=== PATIENT | female | born 1995 | race Caucasian/White ===

== ENCOUNTER → 2016-10-26 | Outpatient (CLI) | payer OTHER ==
[~2016-10-26] MED LIST: BIRTH CONTROL; NORCO 325 MG-51 TAB PO
== END ==
LOC: COL.RAD 11:40
DX: R10.11 Right upper quadrant pain (principal)

== ENCOUNTER 2016-10-29 19:42 | Emergency (ER) | payer OTHER ==
[~2016-10-29] VITALS: Ht 160 cm; Wt 75.0 kg
[2016-10-29 19:45] VITALS: BP 150/92; TEMP 98.8
[2016-10-29] MEDS ORDERED: BIRTH CONTROL (20:33)
[2016-10-29 20:42] LABS: PH 7 (5-8); SQUAMOUS EPITHELIAL 0-2 /hpf; URINE APPEARANCE Clear; URINE BACTERIA Rare /hpf; URINE BILIRUBIN Negative (NEGATIVE); URINE BLOOD Negative (NEGATIVE); URINE COLOR Straw; URINE GLUCOSE Negative (NEGATIVE); URINE KETONE Negative (NEGATIVE); URINE RBC 0-2 /hpf; URINE UROBILINOGEN Negative (NEGATIVE); URINE WBC 0-2 /hpf
[2016-10-29 20:44] LABS: ALBUMIN 4.3 gm/dL (3.5-5.0); BILIRUBIN,TOTAL 0.5 mg/dL (0.0-1.0); CALCIUM 9.2 mg/dL (8.4-10.2); CREATININE, serum 0.65 mg/dL (0.52-1.25); POTASSIUM 3.7 mmol/L (3.4-5.0); TOTAL PROTEIN 7.1 gm/dL (6.4-8.2)
[2016-10-29 20:47] LABS: BASO # 0.1 (0.0-0.2); BASO % 0.7 % (0.0-2.0); EOS # 0.1 (0.0-0.7); EOS % 1.1 % (0-4.0); GRAN # 4.9 (1.4-6.5); GRAN % 58.2 % (42.2-75.2); HEMATOCRIT 37.9 % (37.0-47.0); HEMOGLOBIN 12.5 g/dl (12.5-16.0); LYMPH # 2.7 (1.2-3.4); LYMPH % 32.3 % (20.0-51.0); MEAN CELL VOLUME 92 fl (80.0-100.0); MEAN CORPUSCULAR HEMOGLOBIN 30 pg (27.0-31.0); MEAN CORPUSCULAR HGB CONC 33 g/dl (33.0-37.0); MEAN PLATELET VOLUME 10.9 fl (7.4-10.4); MONO # 0.6 (0.1-0.6); MONO % 7.3 % (1.7-9.3); PLATELET COUNT 238 K/mm3 (130-400); RED BLOOD COUNT 4.14 M/mm3 (4.10-5.30); REDCELL DISTRIBUTION WIDTH-CV 12.8 % (11.5-14.5); WHITE BLOOD COUNT 8.4 K/mm3 (4.8-10.8)
[2016-10-29] MEDS ORDERED: NORCO 325 MG-51 TAB PO (21:48)
[2016-10-29 22:04] VITALS: PULSE 67
== END 2016-10-29 22:06 | disposition home or self-care (01) ==
LOC: COL.ER 19:42
PROVIDERS: Nurse Practitioner
DX: R10.11 Right upper quadrant pain (principal)
CPT/HCPCS: J2765; J3010; J7030

== ENCOUNTER → 2016-11-01 | Outpatient (CLI) | payer OTHER | LOC: COL.RAD 05:56 | DX: R10.11 Right upper quadrant pain (principal) | CPT/HCPCS: A9537; J2805 ==

== ENCOUNTER → 2017-02-15 | Outpatient (REF) | LOC: WSOH 11:20 | DX: Z00.00 Encounter for general adult medical examination without abnormal findings (principal) ==

== ENCOUNTER 2017-12-05 10:19 | Emergency (ER) | payer BC ==
[~2017-12-05] VITALS: Ht 160 cm; Wt 86.4 kg
[2017-12-05] MEDS ORDERED: CLARITIN 1010 MG/TAB PO (10:25)
[2017-12-05] MEDS ORDERED: ADVIL MIGRAINE200 MG PO (10:27)
[2017-12-05 10:58] LABS: BASO # 0.1 (0.0-0.2); BASO % 0.8 % (0.0-2.0); EOS # 0.1 (0.0-0.7); EOS % 1.4 % (0-4.0); GRAN % 65.3 % (42.2-75.2); HEMATOCRIT 39.7 % (37.0-47.0); HEMOGLOBIN 13.3 g/dl (12.5-16.0); LYMPH # 2.3 (1.2-3.4); LYMPH % 24.6 % (20.0-51.0); MEAN CELL VOLUME 89 fl (80.0-100.0); MEAN CORPUSCULAR HEMOGLOBIN 30 pg (27.0-31.0); MEAN CORPUSCULAR HGB CONC 34 g/dl (33.0-37.0); MEAN PLATELET VOLUME 10.8 fl (7.4-10.4); MONO # 0.7 (0.1-0.6); MONO % 7.5 % (1.7-9.3); PLATELET COUNT 269 K/mm3 (130-400); RED BLOOD COUNT 4.45 M/mm3 (4.10-5.30); REDCELL DISTRIBUTION WIDTH-CV 12.9 % (11.5-14.5)
[2017-12-05 11:08] LABS: ALBUMIN 4.1 gm/dL (3.5-5.0); BILIRUBIN,TOTAL 0.4 mg/dL (0.0-1.0); CALCIUM 9.7 mg/dL (8.4-10.2); CREATININE, serum 0.66 mg/dL (0.52-1.25); POTASSIUM 4.2 mmol/L (3.4-5.0); TOTAL PROTEIN 8.2 gm/dL (6.4-8.2)
[2017-12-05 11:44] LABS: COLLECTION METHOD CLEAN CATCH
[2017-12-05 11:51] LABS: AMORPHOUS CRYSTAL Present /uL; MUCOUS Present /lpf; PH 8 (5-8); SQUAMOUS EPITHELIAL 0-2 /hpf; URINE APPEARANCE Cloudy; URINE BACTERIA None Seen /hpf; URINE BILIRUBIN Negative (NEGATIVE); URINE BLOOD Negative (NEGATIVE); URINE COLOR Yellow; URINE GLUCOSE Negative (NEGATIVE); URINE KETONE Negative (NEGATIVE); URINE LEUKOCYTE ESTERASE Negative (NEGATIVE); URINE NITRATE Negative (NEGATIVE); URINE PROTEIN(semi-quant) Negative (NEGATIVE); URINE RBC 0-2 /hpf; URINE UROBILINOGEN Negative (NEGATIVE)
[2017-12-05 13:03] VITALS: BP 121/81; PULSE 71; TEMP 98
== END 2017-12-05 13:05 | disposition home or self-care (01) ==
LOC: COL.ER 10:19
PROVIDERS: Nurse Practitioner
DX: G43.909 Migraine, unspecified, not intractable, without status migrainosus (principal); M54.2 Cervicalgia; Z90.710 Acquired absence of both cervix and uterus; Z90.49 Acquired absence of other specified parts of digestive tract; Z87.42 Personal history of other diseases of the female genital tract
CPT/HCPCS: J1200; J1885; J2765; J7030

== ENCOUNTER 2020-12-29 20:24 | Emergency (ER) | payer BC ==
[~2020-12-29] VITALS: Ht 160 cm; Wt 100.0 kg
[~2020-12-29 20:24] MED LIST changes: +ADVIL MIGRAINE200 MG PO; +CLARITIN 1010 MG/TAB PO
[2020-12-29 21:22] LABS: BASO # 0.1 (0.0-0.2); BASO % 0.5 % (0.0-2.0); EOS # 0.3 (0.0-0.7); EOS % 2.1 % (0-4.0); GRAN # 9.6 (1.4-6.5); HEMATOCRIT 40.5 % (37.0-47.0); HEMOGLOBIN 13.3 g/dl (12.5-16.0); LYMPH # 3.9 (1.2-3.4); LYMPH % 26.7 % (20.0-51.0); MEAN CELL VOLUME 88 fl (80.0-100.0); MEAN CORPUSCULAR HEMOGLOBIN 29 pg (27.0-31.0); MEAN CORPUSCULAR HGB CONC 33 g/dl (33.0-37.0); MEAN PLATELET VOLUME 10.1 fl (7.4-10.4); MONO # 0.7 (0.1-0.6); MONO % 4.4 % (1.7-9.3); PLATELET COUNT 324 K/mm3 (130-400); RED BLOOD COUNT 4.62 M/mm3 (4.10-5.30); REDCELL DISTRIBUTION WIDTH-CV 13.2 % (11.5-14.5)
[2020-12-29 21:50] LABS: ALANINE AMINOTRANSFERASE 34 U/L (4-34); ALBUMIN 4.1 gm/dL (3.5-5.0); ALKALINE PHOSPHATASE 85 U/L (50-136); ANION GAP 10 mmol/L (7-16); AST,SGOT 26 U/L (15-37); BILIRUBIN,TOTAL 0.2 mg/dL (0.0-1.0); BLOOD UREA NITROGEN 17 mg/dL (7-17); CALCIUM 9.7 mg/dL (8.4-10.2); CARBON DIOXIDE 20 mmol/L (22-30); CHLORIDE 105 mmol/L (98-107); CREATININE, serum 0.64 (0.52-1.25); GLUCOSE 127 mg/dL (74-106); SODIUM 136 mmol/L (137-145); TOTAL PROTEIN 7.7 gm/dL (6.4-8.2)
[2020-12-29 22:12] LABS: TROPONIN-I < 0.012 ng/mL (0.000-0.035)
[2020-12-29 23:01] LABS: COLLECTION METHOD CLEAN CATCH
[2020-12-29 23:07] LABS: MUCOUS Present /lpf; PH 6 (5-8); SQUAMOUS EPITHELIAL 0-2 /hpf; URINE APPEARANCE Clear; URINE BACTERIA Rare /hpf; URINE BILIRUBIN Negative (NEGATIVE); URINE BLOOD Negative (NEGATIVE); URINE COLOR Yellow; URINE GLUCOSE Negative (NEGATIVE); URINE KETONE Negative (NEGATIVE); URINE LEUKOCYTE ESTERASE Negative (NEGATIVE); URINE NITRATE Negative (NEGATIVE); URINE PROTEIN(semi-quant) Negative (NEGATIVE); URINE RBC 0-2 /hpf; URINE UROBILINOGEN Negative (NEGATIVE)
[2020-12-30] MEDS ORDERED: DOXYCYCLINE 10100 MG PO (00:04)
[2020-12-30 00:21] VITALS: BP 130/82; PULSE 84; TEMP 98.5
== END 2020-12-30 00:24 | disposition home or self-care (01) ==
LOC: COL.ER 20:24
PROVIDERS: Emergency Medicine
DX: R50.9 Fever, unspecified (principal); R00.0 Tachycardia, unspecified; R05 Cough; J45.909 Unspecified asthma, uncomplicated; Z20.822 Contact with and (suspected) exposure to COVID-19
CPT/HCPCS: J7120; Q9967

== ENCOUNTER 2021-12-02 16:22 | Emergency (ER) | payer OTHER ==
[~2021-12-02] VITALS: Ht 160 cm; Wt 104.5 kg
[~2021-12-02 16:22] MED LIST changes: +DOXYCYCLINE 10100 MG PO
[2021-12-02 16:47] VITALS: TEMP 98.4
[2021-12-02 17:38] LABS: COLLECTION METHOD CLEAN CATCH
[2021-12-02 17:43] LABS: BASO # 0.1 K/mm3 (0.0-0.2); BASO % 0.5 % (0.0-2.0); EOS # 0.2 K/mm3 (0.0-0.7); EOS % 1.8 % (0.0-4.0); GRAN # 6.5 K/mm3 (1.4-6.5); GRAN % 65.9 % (42.2-75.2); HEMATOCRIT 40.6 % (37.0-47.0); LYMPH # 2.6 K/mm3 (1.2-3.4); LYMPH % 26.2 % (20.0-51.0); MEAN CELL VOLUME 87 fl (80.0-100.0); MEAN CORPUSCULAR HEMOGLOBIN 28 pg (27-31); MEAN CORPUSCULAR HGB CONC 32 g/dl (33.0-37.0); MEAN PLATELET VOLUME 10.2 fl (7.4-10.4); MONO # 0.5 K/mm3 (0.1-0.6); MONO % 5.2 % (1.7-9.3); PLATELET COUNT 350 K/mm3 (130-400); RED BLOOD COUNT 4.68 M/mm3 (4.10-5.30); REDCELL DISTRIBUTION WIDTH-CV 14.1 % (11.5-14.5)
[2021-12-02 17:47] LABS: MUCOUS Present (NOT PRESENT); PH 5 (5-8); URINE APPEARANCE Clear (CLEAR/HAZY); URINE BACTERIA None Seen /hpf (NONE SEEN); URINE BILIRUBIN Negative (NEGATIVE); URINE BLOOD 3+ (NEGATIVE); URINE COLOR Yellow (YELLOW); URINE GLUCOSE Negative (NEGATIVE); URINE KETONE Negative (NEGATIVE); URINE LEUKOCYTE ESTERASE Negative (NEGATIVE); URINE NITRATE Negative (NEGATIVE); URINE PROTEIN(semi-quant) Negative (NEGATIVE); URINE UROBILINOGEN Negative (NEGATIVE)
[2021-12-02 18:01] LABS: ALBUMIN 4.2 gm/dL (3.5-5.0); BILIRUBIN,TOTAL 0.3 mg/dL (0.2-1.2); CALCIUM 9.6 mg/dL (8.4-10.2); CREATININE, serum 0.79 mg/dL (0.57-1.11); POTASSIUM 3.5 mmol/L (3.5-4.5); TOTAL PROTEIN 7.8 gm/dL (6.2-8.1)
[2021-12-02 18:34] VITALS: BP 154/78; PULSE 80
== END 2021-12-02 18:34 | disposition home or self-care (01) ==
LOC: COL.ER 16:22
PROVIDERS: Physician Assistant
DX: R10.31 Right lower quadrant pain (principal); R10.32 Left lower quadrant pain; R07.89 Other chest pain